=== PATIENT | male | born 1960 | race Caucasian/White ===

== ENCOUNTER 2019-11-20 17:45 | Observation (INO) | payer OTHER ==
[~2019-11-20] VITALS: Ht 182.9 cm; Wt 107.5 kg
[~2019-11-20 17:45] MED LIST: ASPI-252 PO; SIMV20TA PO
[2019-11-20] MEDS ORDERED: NEOMY/BACITR/POLYMYXIN OINT PACKET. TP ONE ×2 (18:29→18:30)
[2019-11-20 18:44] LABS: BASO % 1 % (0-3); EOS # 0.2 x10^3/uL (0.0-0.7); EOS % 3 % (0-3); HEMATOCRIT 42.4 % (39.0-53.0); HEMOGLOBIN 14.7 g/dL (13.0-17.5); LYMPH # 1.5 x10^3/uL (1.0-4.8); LYMPH % 22 % (24-48); MEAN CORPUSCULAR HEMOGLOBIN 33 pg (25-35); MEAN CORPUSCULAR HGB CONC 35 g/dL (31-37); MEAN CORPUSCULAR VOLUME 95 fL (79-100); MONO # 0.5 x10^3/uL (0.0-1.1); MONO % 7 % (0-9); NEUT # 4.7 x10^3/uL (1.8-7.7); NEUT % 67 % (31-73); PLATELET COUNT 243 x10^3/uL (140-400); RED BLOOD COUNT 4.48 x10^6/uL (4.30-5.70); RED CELL DISTRIBUTION WIDTH 13.7 % (11.5-14.5)
[2019-11-20 18:53] LABS: CREATININE 0.8 mg/dL (0.7-1.3); GFR 98.9; POTASSIUM 4.1 mmol/L (3.5-5.1)
[2019-11-20 18:58] LABS: ALBUMIN 3.4 g/dL (3.4-5.0); TOTAL BILIRUBIN 0.4 mg/dL (0.2-1.0); TOTAL PROTEIN 6.9 g/dL (6.4-8.2)
[2019-11-20] MEDS ORDERED: VANCOMYCIN PER PHARMACY MC PRN (19:15)
--- NOTE | 2019-11-20 19:22 | PHYS DOC ---
Past Medical History Past Medical History: Arthritis, CVA, High Cholesterol Past Surgical History: No Surgical History Smoking Status: Never Smoker Alcohol Use: Occasionally Drug Use: None General Adult EDM: Chief Complaint: LACERATION/AVULSION HPI: HPI: Patient is a 59 year old male who presents to the ER with complaints of a wound to his lower left extremity that began bleeding after he accidentally must have rubbed his leg against something at the local doctor. Patient states that he initially injured this part of his leg about 2 months ago. He states that his lower leg has been discolored since the original injury and that the wound has never healed completely. He denies any fever, drainage, or pain at the site of the abrasion. Patient states he noticed that his left lower leg was red and hot to touch earlier today. He currently denies any pain. Patient also denies any medical or surgical history. Review of Systems: Review of Systems: Constitutional: Denies fever or chills. [] HENT: Denies nasal congestion or sore throat. [] Respiratory: Denies cough or shortness of breath. [] Cardiovascular: Denies chest pain or edema. [] GI: Denies abdominal pain, nausea, vomiting, or diarrhea. [] : Denies dysuria. [] Musculoskeletal: Denies back pain or joint pain. [] Integument: see HPI Neurologic: Denies headache, focal weakness or sensory changes. [] Psychiatric: Denies depression or anxiety. [] Heart Score: Risk Factors: Risk Factors: DM, Current or recent (<one month) smoker, HTN, HLP, family history of CAD, obesity. Risk Scores: Score 0 - 3: 2.5% MACE over next 6 weeks - Discharge Home Score 4 - 6: 20.3% MACE over next 6 weeks - Admit for Clinical Observation Score 7 - 10: 72.7% MACE over next 6 weeks - Early Invasive Strategies Current Medications: Current Medications Medications (Trade) Dose Ordered Sig/Lester Start Time Stop Time Status Last Admin Dose Admin Neomycin/ Polymyxin/ Bacitracin (Triple Antibiotic Ointment) 1 pkt STK-MED ONCE 11/20/19 18:29 11/20/19 18:29 DC Allergies: Allergies: Allergies Coded Allergies Type Severity Reaction Last Updated Verified No Known Drug Allergies 06/12/15 No Physical Exam: PE: Constitutional: Well developed, well nourished, no acute distress, non-toxic appearance. [] HENT: Normocephalic, atraumatic, bilateral external ears normal, nose normal. [] Eyes: PERRLA, EOMI, conjunctiva normal, no discharge. [] Neck: Normal range of motion, no stridor. [] Cardiovascular:Heart rate regular rhythm Lungs & Thorax: Respirations even and unlabored, no retractions, no respiratory distress Skin: Warm, dry, erythema and warmth surrounding non healed wound to left lateral mid calf concerning for cellulitis, darkening of skin of LLE concerning for vascular disease Extremities:LLE: No bony tenderness, no cyanosis, no clubbing, ROM intact, 1+ edema. [] Neurologic: Alert and oriented X 3, no focal deficits noted. [] Psychologic: Affect normal, judgement normal, mood normal. [] Current Patient Data: Labs: Laboratory Tests Test 11/20/19 18:35 White Blood Count 7.0 x10^3/uL (4.0-11.0) Red Blood Count 4.48 x10^6/uL (4.30-5.70) Hemoglobin 14.7 g/dL (13.0-17.5) Hematocrit 42.4 % (39.0-53.0) Mean Corpuscular Volume 95 fL (79-100) Mean Corpuscular Hemoglobin 33 pg (25-35) Mean Corpuscular Hemoglobin Concent 35 g/dL (31-37) Red Cell Distribution Width 13.7 % (11.5-14.5) Platelet Count 243 x10^3/uL (140-400) Neutrophils (%) (Auto) 67 % (31-73) Lymphocytes (%) (Auto) 22 % (24-48) L Monocytes (%) (Auto) 7 % (0-9) Eosinophils (%) (Auto) 3 % (0-3) Basophils (%) (Auto) 1 % (0-3) Neutrophils # (Auto) 4.7 x10^3/uL (1.8-7.7) Lymphocytes # (Auto) 1.5 x10^3/uL (1.0-4.8) Monocytes # (Auto) 0.5 x10^3/uL (0.0-1.1) Eosinophils # (Auto) 0.2 x10^3/uL (0.0-0.7) Basophils # (Auto) 0.0 x10^3/uL (0.0-0.2) Sodium Level 142 mmol/L (136-145) Potassium Level 4.1 mmol/L (3.5-5.1) Chloride Level 105 mmol/L (98-107) Carbon Dioxide Level 27 mmol/L (21-32) Anion Gap 10 (6-14) Blood Urea Nitrogen 14 mg/dL (8-26) Creatinine 0.8 mg/dL (0.7-1.3) Estimated GFR (Cockcroft-Gault) 98.9 BUN/Creatinine Ratio 18 (6-20) Glucose Level 101 mg/dL (70-99) H Lactic Acid Level 1.1 mmol/L (0.4-2.0) Calcium Level 9.0 mg/dL (8.5-10.1) Total Bilirubin 0.4 mg/dL (0.2-1.0) Aspartate Amino Transferase (AST) 22 U/L (15-37) Alanine Aminotransferase (ALT) 20 U/L (16-63) Alkaline Phosphatase 60 U/L (46-116) Total Protein 6.9 g/dL (6.4-8.2) Albumin 3.4 g/dL (3.4-5.0) Albumin/Globulin Ratio 1.0 (1.0-1.7) Laboratory Tests 11/20/19 18:35 Laboratory Tests 11/20/19 18:35 Vital Signs: Vital Signs Date Time Temp Pulse Resp B/P (MAP) Pulse Ox O2 Delivery O2 Flow Rate FiO2 11/20/19 18:17 82 18 144/75 (98) 95 Room Air 11/20/19 17:53 98.3 98.3 EKG: EKG: [] Radiology/Procedures: Radiology/Procedures: [] Course & Med Decision Making: Course & Med Decision Making Pertinent Labs and Imaging studies reviewed. (See chart for details) 1910-spoke with Dr. Telles who is the admitting physician, and care was assumed following discussion of patient. Patient's vital signs stable. Patient remains afebrile, appears nontoxic, respirations even and unlabored. Patient will be admitted to the med/surg floor. Patient's case and plan of care also discussed with Dr. Flores [] Alex Disclaimer: Alex Disclaimer: This electronic medical record was generated, in whole or in part, using a voice recognition dictation system. Departure Departure Impression: Primary Impression: Cellulitis of left leg without foot Disposition: 09 ADMITTED INPATIENT Admitting Physician: Afshin Telles Condition: STABLE Referrals: AFSHIN TELLES MD (PCP) LV ESPINAL APRN Nov 20, 2019 19:22
[2019-11-20] MEDS ORDERED: VANCOMYCIN 2 GM in IV NORMAL SALINE 500ML BAG 500 ML IV ONE (19:30)
--- NOTE | 2019-11-20 20:10 | NUR ---
Pharmacy Vancomycin Dosing Note S:Consulted to monitor and dose vancomycin started 11/20/19. O:YURY RAMIREZ is a 59 year old M with Cellulitis. Height: 6 feet, 0 inches Weight: 102.0 kg [place] Body Weight: 77.60 Adjusted Body Weight: 87.36 Dosing Weight: Actual LABS: Last BUN: 14 Last Creatinine: 0.8 Creatinine Clearance: 122 mL/min Last WBC: 7 Last Procalcitonin: -- Tmax (past 24 hours): 98.3 Drug Levels: Last dose given 11/20/19 at 1942 Vancomycin Dosing: Loading Dose: 2000 mg x1 Dosing Weight: Actual Target Trough: 10-20 A: Based on: patient's age, renal function and weight. P: 1. Begin Vancomycin 1250 mg IV q8h after loading dose is complete. 2. Follow up Trough level on 11/21/19 at 1930 3. Pharmacy will continue to monitor, follow and adjust therapy as needed. AMINA PICKETT RPH, 11/20/192009
[2019-11-20 20:15] VITALS: BP 117/70
[2019-11-20 23:00] VITALS: BP 108/80
[2019-11-21 03:00] VITALS: BP 119/71
[2019-11-21] MEDS ORDERED: VANCOMYCIN 1.25 GM in IV NORMAL SALINE 250ML 250 ML IV SCH (04:00)
[2019-11-21 05:06] LABS: CREATININE 0.8 mg/dL (0.7-1.3); GFR 98.9
[2019-11-21 07:33] VITALS: BP 133/79
--- NOTE | 2019-11-21 10:16 | NUR ---
SW following. Discussed with RN, pt from home, IV abx, regular diet. Pt is observation status. SW awaiting further notes in chart to determine plan of care.
--- NOTE | 2019-11-21 11:07 | PDOC ---
Provider Note Provider Note Combined history and physical and discharge summary dictated #[id number] BORIS TELLES MD Nov 21, 2019 11:07
[2019-11-21] MEDS ORDERED: MUPI15CR8 TP (11:09)
[2019-11-21] MEDS ORDERED: ASPI-630 PO (11:09)
[2019-11-21] MEDS ORDERED: SULF1TAB24 PO (11:09)
--- NOTE | 2019-11-21 11:11 | DISCH ---
DISCHARGE INSTRUCTIONS Condition on Discharge Condition on Discharge: Stable Activity After Discharge Activity Instructions for Disc: Activity as tolerated Diet after Discharge Diet after Discharge: Cardiac Diet Texture: Regular Wound Incision Care Other wound/incision instructi: Apply mupirocin ointment twice daily. Cover with nonstick dressing Contacting the DRS[facility] after DC Call your doctor for: Concerns you may have Follow-Up Follow up with: Dr. Boris Telles in 6 days Treatment/Equipment after DC Adaptive Equipment Issued: None BORIS TELLES MD Nov 21, 2019 11:11
[2019-11-21 11:38] VITALS: BP 128/70
--- NOTE | 2019-11-21 11:50 | NUR ---
Discharge instructions given with prescriptions and dressings. Answered questions and concerns. Verbalized understanding. And demonstrated how to change dressing and applied KRYSTAL hose. Waiting for ride home.
--- NOTE | 2019-11-21 11:57 | DS ---
DATE OF DISCHARGE: 11/21/2019 COMBINED HISTORY AND PHYSICAL AND DISCHARGE SUMMARY HISTORY OF PRESENT ILLNESS: This is a 59-year-old male has had a left lower extremity wound for the last 2 months. He has a history of varicose veins and chronic swelling of the lower extremities, more on the left side. Yesterday, he was working with a boat and he feels like he scraped his leg and it started bleeding. Because of the severity of the bleeding, he came to the Emergency Room and called ambulance to bring him there in the Emergency Room. Bleeding was stopped. Dressing was applied and the patient was also noted to have left leg wound along with some cellulitis and varicose veins. The patient was admitted to the hospital for observation. He was started on IV vancomycin. The patient does not have any bleeding now. He is feeling better. He denies any fever, chills, abdominal pain, nausea, vomiting, pain in the leg. Because of his bleeding cellulitis, pain and swelling, the patient was admitted for further evaluation and management. REVIEW OF SYSTEMS: As noted in the history of present illness. The patient denies any pain or dyspnea at this time. He had a similar episode of bleeding 2 months ago also. He does take low-dose aspirin. Other systems reviewed and are negative. PAST MEDICAL HISTORY: The patient was last admitted here in 05/2015 for history of hypertension, osteoarthritis, allergic rhinitis, hypothyroid disease. Last admission was in 05/2015 where he had a left hemispheric stroke clinically with gait disorder. PAST SURGICAL HISTORY: None. FAMILY HISTORY: Father had lymphoma, prostate cancer. Mother had lung cancer. Father also had coronary artery disease. SOCIAL HISTORY: The patient is single, former smoker. No history of alcoholism or drug abuse. MEDICATIONS: Reviewed and reconciled. ALLERGIES: THE PATIENT STATES THAT HE IS ALLERGIC TO AMOXICILLIN AND PENICILLIN, but he actually had oral candidiasis and no other allergies. PHYSICAL EXAMINATION: GENERAL: The patient is an elderly male who is alert, oriented x 3 and not in acute distress. VITAL SIGNS: Temperature 98.6, pulse 67 per minute, respirations 18 per minute, blood pressure 117/70 mmHg. EYES: Pupils reacting to light. Conjunctivae are pink. Sclerae white. HEENT: Unremarkable. NECK: Supple. JVP normal. No thyromegaly. Trachea midline. LUNGS: Clear. CARDIOVASCULAR: S1, S2 regular. ABDOMEN: Soft, nontender, no guarding, no rigidity. Liver, spleen not palpable. Bowel sounds present. EXTREMITIES: Varicose veins bilaterally, 2+ edema on the left lower extremity and trace to 1+ edema on the right lower extremity. The patient has a superficial open area in the left lower leg with some surrounding redness. No active bleeding noted at this time. No tenderness or abscess noted. CENTRAL NERVOUS SYSTEM: Alert and oriented. LABORATORY FINDINGS: WBC count 7, hemoglobin 14.7. Sodium 142, potassium 4.1, BUN 14, creatinine 0.8. Lactic acid is 1.1. FINAL DIAGNOSES: 1. Cellulitis of the left leg. 2. Bleeding from the left leg, likely due to varicose veins. Bleeding has stopped. 3. Chronic venous stasis ulcer. 4. Hyperlipidemia. 5. History of left hemispheric stroke/TIA. PLAN: Okay to discharge the patient home. I will hold aspirin for 2 more days and then restart it at a lower dose of 81 mg daily, apply mupirocin ointment/cream twice daily. The patient is advised to use a nonstick dressing. He may return to work on . The patient was given IV vancomycin during the stay in the hospital. I will change it to Bactrim-DS 1 twice a day for a week. I will see the patient in the office in 6 days on Wednesday. Call if any problems. BORIS TELLES MD DR: POLO/chad JOB#: [id number] / [id number]
[2019-11-21] MEDS ORDERED: MUPIROCIN 2 % TOPICAL CREAM 30GM TUBE. TP SCH (12:00)
--- NOTE | 2019-11-21 12:10 | NUR ---
Discharged home. Escorted out by w/c.
[2019-11-21] MEDS ORDERED: LACTOBACILLUS RHAMNOSUS GG 1 CAPSULE. PO SCH (21:00)
== END 2019-11-21 12:57 | disposition home or self-care (01) ==
LOC: ER 17:45 → INTOOBSV 19:11 → 4 NORTH 19:11
PROVIDERS: ADMIT Internal Medicine; ATTEND Internal Medicine
DX: L03.116 Cellulitis of left lower limb (principal); M19.90 Unspecified osteoarthritis, unspecified site; I83.009 Varicose veins of unspecified lower extremity with ulcer of unspecified site; I10 Essential (primary) hypertension; E03.9 Hypothyroidism, unspecified; E78.00 Pure hypercholesterolemia, unspecified; Z86.73 Personal history of transient ischemic attack (TIA), and cerebral infarction without residual deficits; Z87.891 Personal history of nicotine dependence
CPT/HCPCS: 36415; 80053; 82565; 83605; 85025; 96365; 96366; 99284; G0378; J3370; J7040; J7050; G0379; J7030